=== PATIENT | male | born 1985 | race Two or more races ===

== ENCOUNTER 2021-03-04 12:17 | Emergency (ER) | payer SELFPAY ==
--- NOTE | 2021-03-04 13:08 | EDM.PDOC ---
ED HPI GENERAL MEDICAL PROBLEM - General Chief Complaint: Abdominal Pain Stated Complaint: STOMACHE PAINS Time Seen by Provider: 03/04/21 12:20 Source of Information: Reports: Patient History Limitations: Reports: No Limitations - History of Present Illness INITIAL COMMENTS - FREE TEXT/NARRATIVE: 35-year-old male past surgical history appendectomy presents for abdominal pain. Patient is noted symptoms for roughly the last 2 days. He notes a diffuse abdominal aching pain associated with some nausea but no vomiting. He also complains of itchiness in his rectum. He has noted white worms when he is wiping a couple of times. No rectal bleeding. No fevers. History was assisted by supervisor [employer]. abdomen Pain Score (Numeric/FACES): 6 - Related Data Allergies Allergy/AdvReac Type Severity Reaction Status Date / Time No Known Allergies Allergy Verified 03/04/21 12:55 Home Meds: Home Meds Albendazole [Albenza] 400 mg PO ASDIRECTED #2 tablet 03/04/21 [Rx] Past Medical History HEENT History: Reports: None Cardiovascular History: Reports: None Respiratory History: Reports: None Gastrointestinal History: Reports: None Genitourinary History: Reports: None Musculoskeletal History: Reports: None Neurological History: Reports: None Psychiatric History: Reports: None Endocrine/Metabolic History: Reports: None Hematologic History: Reports: None Immunologic History: Reports: None Oncologic (Cancer) History: Reports: None Dermatologic History: Reports: None - Infectious Disease History Infectious Disease History: Reports: Measles - Past Surgical History Head Surgeries/Procedures: Reports: None HEENT Surgical History: Reports: None Cardiovascular Surgical History: Reports: None Respiratory Surgical History: Reports: None GI Surgical History: Reports: Appendectomy Male Surgical History: Reports: None Endocrine Surgical History: Reports: None Neurological Surgical History: Reports: None Musculoskeletal Surgical History: Reports: None Oncologic Surgical History: Reports: None Dermatological Surgical History: Reports: None Social & Family History - Family History Family Medical History: No Pertinent Family History - Tobacco Use Tobacco Use Status *Q: Never Tobacco User - Caffeine Use Caffeine Use: Reports: None - Recreational Drug Use Recreational Drug Use: No ED ROS GENERAL - Review of Systems Review Of Systems: Comprehensive ROS is negative, except as noted in HPI. ED EXAM, GENERAL - Physical Exam Exam: See Below Exam Limited By: No Limitations General Appearance: Alert, WD/WN, No Apparent Distress Throat/Mouth: Normal Voice, No Airway Compromise Head: Atraumatic, Normocephalic Neck: Normal Inspection Respiratory/Chest: No Respiratory Distress, Lungs Clear, Normal Breath Sounds, No Accessory Muscle Use Cardiovascular: Normal Peripheral Pulses, Regular Rate, Rhythm GI/Abdominal: Soft, Non-Tender Rectal (Males) Exam: Normal Exam, Normal Rectal Tone, Other (no pinworms visible on exam) Extremities: Normal Inspection Neurological: Alert, Normal Cognition, Normal Gait Psychiatric: Normal Affect, Normal Mood Skin Exam: Warm, Dry, Intact, Normal Color Course - Vital Signs Last Recorded V/S: Last Vital Signs Temp 96.6 F L 03/04/21 12:48 Pulse 100 03/04/21 12:48 Resp 17 03/04/21 12:48 BP 128/89 03/04/21 12:48 Pulse Ox 97 03/04/21 12:48 - Orders/Labs/Meds Labs: Laboratory Tests 03/04/21 03/04/21 Range/Units 14:12 14:12 WBC 6.14 (4.0-11.0) K/uL RBC 5.31 (4.50-5.90) M/uL Hgb 16.5 (13.0-17.0) g/dL Hct 47.9 (38.0-50.0) % MCV 90.2 (80.0-98.0) fL MCH 31.1 (27.0-32.0) pg MCHC 34.4 (31.0-37.0) g/dL RDW Std Deviation 40.7 (28.0-62.0) fl RDW Coeff of Rivka 12 (11.0-15.0) % Plt Count 288 (150-400) K/uL MPV 9.90 (7.40-12.00) fL Neut % (Auto) 59.5 (48.0-80.0) % Lymph % (Auto) 30.1 (16.0-40.0) % Gonzales % (Auto) 8.0 (0.0-15.0) % Eos % (Auto) 2.1 (0.0-7.0) % Baso % (Auto) 0.3 (0.0-1.5) % Neut # (Auto) 3.7 (1.4-5.7) K/uL Lymph # (Auto) 1.9 (0.6-2.4) K/uL Gonzales # (Auto) 0.5 (0.0-0.8) K/uL Eos # (Auto) 0.1 (0.0-0.7) K/uL Baso # (Auto) 0.0 (0.0-0.1) K/uL Nucleated RBC % 0.0 /100WBC Nucleated RBCs # 0 K/uL Sodium 138 (136-148) mmol/L Potassium 4.1 (3.5-5.1) mmol/L Chloride 103 (98-107) mmol/L Carbon Dioxide 27.0 (21.0-32.0) mmol/L BUN 9 (7.0-18.0) mg/dL Creatinine 0.8 (0.8-1.3) mg/dL Est Cr Clr Drug Dosing 127.06 mL/min Estimated GFR (MDRD) > 60.0 ml/min Glucose 117 H (74-106) mg/dL Calcium 8.5 (8.5-10.1) mg/dL Total Bilirubin 0.8 (0.2-1.0) mg/dL AST 21 (15-37) IU/L ALT 47 (14-63) IU/L Alkaline Phosphatase 85 (46-116) U/L Total Protein 7.4 (6.4-8.2) g/dL Albumin 3.4 (3.4-5.0) g/dL Globulin 4.0 (2.6-4.0) g/dL Albumin/Globulin Ratio 0.9 (0.9-1.6) Lipase 135 (73-393) U/L - Re-Assessments/Exams Free Text/Narrative Re-Assessment/Exam: 03/04/21 14:50 Labs are unremarkable. I wanted to treat for pinworms and send patient home with second dose but unfortunately we do not carry that medication in the hospital. Prescription sent to pharmacy. Departure - Departure Time of Disposition: 14:50 Disposition: Home, Self-Care 01 Condition: Good Clinical Impression: Pinworm infection - Discharge Information Prescriptions: Albendazole [Albenza] 400 mg PO ASDIRECTED #2 tablet Instructions: Pinworms, Pediatric Referrals: PCP,None [Primary Care Provider] - Forms: ED Department Discharge Additional Instructions: Karyn sntomas son ms consistentes con carlos infeccin por oxiuros. El tratamiento para esto es un medicamento antiparasitario. Envi la receta a corbett farmacia (farmacia [employer]). Princess 1 pastilla maana y princess la segunda pastilla en 2 semanas. La siguiente informacin se stefania a los pacientes atendidos en el departamento de emergencias que estn siendo dados de paramjit a corbett hogar. Esta informacin es para describir karyn opciones para la atencin de seguimiento. Proporcionamos a todos los pacientes atendidos en nuestro departamento de emergencias carlos derivacin de seguimiento. La necesidad de seguimiento, as mike el momento y las circunstancias, varan segn los detalles de corbett visita al departamento de emergencias. Si no tiene un mdico de atencin primaria en el personal, le proporcionaremos carlos referencia. Siempre le recomendamos que se ponga en contacto con corbett mdico personal despus de carlos visita al servicio de urgencias para informarle de las circunstancias de la visita y para hacer un seguimiento con l y / o la necesidad de cualquier derivacin a un especialista consultor. El departamento de emergencias tambin lo derivar a un especialista cuando sea apropiado. Esta remisin le asegura que tiene la oportunidad de recibir atencin de seguimiento con un especialista. Todas estas medidas se tiara en un esfuerzo por brindarle carlos atencin ptima, que incluye corbett seguimiento. En todas las circunstancias, siempre lo alentamos a que se comunique con corbett mdico privado, quien sigue siendo un recurso para coordinar corbett atencin. Cuando llame para recibir atencin de seguimiento, informe al consultorio que rush seguimiento es de corbett visita reciente a la lulu de emergencias. Si por alguna razn se le niega el seguimiento, comunquese con el Departamento de Emergencias del [facility] al y solicite hablar con la enfermera a cargo del departamento de emergencias. Suki un seguimiento con corbett mdico de atencin primaria. Si no tiene un mdico de atencin primaria, consulte a continuacin: [facility] [address] [place] [id number] [id number] [facility] [address] [place] [id number] Sepsis Event Note (ED) - Evaluation Sepsis Screening Result: No Definite Risk - Focused Exam Vital Signs: Vital Signs Temp Pulse Resp BP Pulse Ox 03/04/21 12:48 96.6 F L 100 17 128/89 97
[2021-03-04 14:42] LABS: BLOOD UREA NITROGEN,BUN 9 mg/dL (7.0-18.0); CHLORIDE,CL 103 mmol/L (98-107); GLUCOSE RANDOM 117 mg/dL (74-106); LIPASE 135 U/L (73-393); POTASSIUM,K 4.1 mmol/L (3.5-5.1); SODIUM,NA 138 mmol/L (136-148)
== END 2021-03-04 15:29 | disposition home or self-care (01) ==
LOC: MW.ED 12:17
DX: B80 Enterobiasis (principal)
CPT/HCPCS: 36415; 80053; 83690; 85025; 99283; 99284